=== PATIENT | female | born 1945 | race Caucasian/White ===

== ENCOUNTER 2020-08-15 23:41 | Emergency (ER) | payer MEDICARE ==
[~2020-08-15 23:41] MED LIST: BENTYL10 MG PO; ZOFRAN4 MG PO
[2020-08-16 00:56] LABS: BASOPHIL 0.6 % (0-2); EOSINOPHIL 1.6 % (0-7); HCT 33.5 % (37.0-47.0); HGB 10.5 g/dl (12.5-16.0); LYMPHOCYTE 14.5 % (15-48); MCH 30.5 pg (25.0-31.0); MCHC 31.3 g/dL (32.0-36.0); MCV 97.4 fL (78.0-100.0); MONOCYTE 10.3 % (0-12); MPV 9.9 fL (6.0-9.5); NEUTROPHIL 72.8 % (41-80); NRBC 0; PLT 192 K/uL (150-400); RBC 3.44 M/uL (4.20-5.40); RDW 13.5 % (11.5-14.0); WBC 8.1 K/uL (4.0-10.5)
[2020-08-16 01:16] LABS: CREATININE 1.12 mg/dL (0.51-0.95)
[2020-08-16 01:17] LABS: ALBUMIN 3.2 g/dL (3.4-5.0); BILIRUBIN - TOTAL 0.2 mg/dL (0.2-1.0); GLOBULIN (CALCULATION) 3.4 g/dL; POTASSIUM 3.9 mmol/L (3.5-5.1); TOTAL PROTEIN 6.6 g/dL (6.4-8.2)
[2020-08-16] MEDS ORDERED: ZOFRAN4 M1 PO (03:08)
[2020-08-16] MEDS ORDERED: NORCO 5-325 TA1 EACH PO (03:08)
[2020-08-16] MEDS ORDERED: FLOMAX0.4 MG PO (03:08)
== END 2020-08-16 03:55 | disposition home or self-care (01) ==
LOC: FER 23:41
PROVIDERS: Emergency Medicine
DX: N13.2 Hydronephrosis with renal and ureteral calculous obstruction (principal); Z87.19 Personal history of other diseases of the digestive system; Z90.710 Acquired absence of both cervix and uterus
CPT/HCPCS: 36415; 80053; 83690; 84145; 85025; J1170; J1885; J2405; J7030